=== PATIENT | female | born 1995 | race Caucasian/White ===

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

== ENCOUNTER 2017-08-24 23:23 | Emergency (ER) | payer OTHER ==
[2017-08-24 23:23] VITALS: BP 133/84
[~2017-08-24 23:23] MED LIST changes: +METO10TA81 PO
--- NOTE | 2017-08-24 23:26 | ED.ADGEN ---
Past History Past Medical History: Anxiety, Asthma Past Surgical History: No Surgical History Smoking: Cigarettes Alcohol Use: Occasionally Drug Use: None Adult General Chief Complaint Chief Complaint ".. I was cutting chicken... and got my Lt hand in the way..." HPI HPI Patient is a 21 year old female who presents with above hx and complaints lacerations to 3rd, 4th, 5th. Small less 0.5 cm laceraton of 3rd and 5 th fingers Lt. Has 2 Cm laceration to 4 th finger flexor surface. Dist capillary refill less than 2 seconds. Can flex and extend. Does complaints of some numbness at laceration site. Pt. is Rt. hand dominate. No hx of immunosuppression. No travel or specific ill contacts. Pt tetanus up dated less 1 yr. Review of Systems Review of Systems Constitutional: Denies fever or chills [] Eyes: Denies change in visual acuity, redness, or eye pain [] HENT: Denies nasal congestion or sore throat [] Respiratory: Denies cough or shortness of breath [] Cardiovascular: No additional information not addressed in HPI [] GI: Denies abdominal pain, nausea, vomiting, bloody stools or diarrhea [] : Denies dysuria or hematuria [] Musculoskeletal: Denies back pain or joint pain [] Integument: Denies rash or skin lesions []Laceration as per HPI Neurologic: Denies headache, focal weakness or sensory changes [] Endocrine: Denies polyuria or polydipsia [] All other systems were reviewed and found to be within normal limits, except as documented in this note. Family History Family History Non-contributory Current Medications Current Medications Current Medications Medications (Trade) Dose Ordered Sig/Bert Start Time Stop Time Status Last Admin Dose Admin Bupivacaine HCl (Sensorcaine Mpf 0.5%) 30 ml STK-MED ONCE 08/25/17 00:03 08/25/17 00:06 DC Cephalexin HCl (Keflex) 500 mg 1X ONCE 08/25/17 02:00 08/25/17 02:02 DC 08/25/17 02:00 500 MG Lidocaine HCl 20 ml STK-MED ONCE 08/25/17 00:03 08/25/17 00:06 DC See Nursing for home meds. Allergies Allergies Allergies Coded Allergies Type Severity Reaction Last Updated Verified No Known Drug Allergies 09/09/16 No Physical Exam Physical Exam Constitutional: Well developed, well nourished, moderately acute distress, non- toxic appearance. [] HENT: Normocephalic, atraumatic, bilateral external ears normal, oropharynx moist, no oral exudates, nose normal. [] Eyes: PERRLA, EOMI, conjunctiva pale no discharge. [] Neck: Normal range of motion, no tenderness, supple, no stridor. [] Cardiovascular:Heart rate regular rhythm, no murmur [] Lungs & Thorax: Bilateral breath sounds equal with a few scattered wheezes on auscultation [] Abdomen: Bowel sounds normal, soft, no tenderness, no masses, no pulsatile masses. [] Skin: Warm, dry, no erythema, no rash. [] Laceration s as per HPI Lt hand Back: No tenderness, no CVA tenderness. [] Extremities: No tenderness, no cyanosis, no clubbing, ROM intact, no edema. [] Neurologic: Alert and oriented X 3, normal motor function, normal sensory function, no focal deficits noted. [] Psychologic: Affect Anxious, judgement normal, mood normal. [] EKG EKG [] Radiology/Procedures Radiology/Procedures [] Course & Med Decision Making Course & Med Decision Making Pertinent Labs and Imaging studies reviewed. (See chart for details). Procedure Note: Laceration Repair- Lt. Hand washed with surgical soap. Injected edge of lacerations and digital block on 4th finger. . Irrigated laceration with NS in Range of motion- l liter. Close laceration on 4th finger with 4 suture- Prolene 4-0. Close tip of 3rd finger with 2 sutures. Skin flap on 3rd finger appear avascular. Dressing applied and yrn splint. Pt. keep laceration clean and dry. Sutures out 10 days. Recommend pt. follow up with hand or plastic. Take Keflex 500 three times day x 7 days. Polysporin 4 x day after dressing removed in 3 days. If dressing becomes soiled or wet must replace immediately. [] Final Impression Final Impression 1. Lacerations 3, 4 5 fingers. Lt. [] Dragon Disclaimer Dragon Disclaimer This electronic medical record was generated, in whole or in part, using a voice recognition dictation system. LISA CHOUDHURY MD Aug 24, 2017 23:26
[2017-08-25] MEDS ORDERED: BUPIVACAINE MPF 0.5% 30 ML VIAL. ONE (00:03)
[2017-08-25] MEDS ORDERED: LIDOCAINE 2% 20 ML VIAL. ONE (00:03)
[2017-08-25] MEDS ORDERED: CEPH-264 PO (01:52)
[2017-08-25] MEDS ORDERED: CEPHALEXIN 250 MG CAPSULE PO ONE (02:00)
== END 2017-08-25 02:00 | disposition home or self-care (01) ==
LOC: ER 23:23
DX: S61.213A Laceration without foreign body of left middle finger without damage to nail, initial encounter (principal); S61.215A Laceration without foreign body of left ring finger without damage to nail, initial encounter; S61.217A Laceration without foreign body of left little finger without damage to nail, initial encounter; J45.909 Unspecified asthma, uncomplicated; F41.9 Anxiety disorder, unspecified; F17.210 Nicotine dependence, cigarettes, uncomplicated; W26.0XXA Contact with knife, initial encounter; Y93.89 Activity, other specified; Y99.8 Other external cause status; Y92.89 Other specified places as the place of occurrence of the external cause
CPT/HCPCS: 12001; 99283

== ENCOUNTER 2017-09-23 08:55 | Emergency (ER) | payer OTHER ==
[~2017-09-23] VITALS: Ht 160 cm; Wt 45.4 kg
[~2017-09-23 08:55] MED LIST changes: +CEPH-264 PO
[2017-09-23 09:18] VITALS: BP 124/76
[2017-09-23 09:37] LABS: BACTERIA,URINE FEW /HPF (0-FEW); BILIRUBIN,URINE NEG (NEG); CLARITY,URINE CLOUDY; COLOR,URINE YELLOW; GLUCOSE,URINE NEG (NEG); NITRITE,URINE NEG (NEG); SQUAMOUS EPITHELIAL CELL,UR OCC /LPF; UROBILINOGEN,URINE 0.2 mg/dL (0.2 mg/dL); WBC,URINE >40 /HPF (0-4)
[2017-09-23 09:38] LABS: U PREG PATIENT NEGATIVE (NEG)
[2017-09-23] MEDS ORDERED: cefTRIAXone IM 1 GM VIAL IM ONE (10:15)
[2017-09-23] MEDS ORDERED: SULF1TAB24 PO (10:42)
[2017-09-23] MEDS ORDERED: PHEN100T82 PO (10:42)
--- NOTE | 2017-09-23 10:43 | PHYS DOC ---
Past History Past Medical History: No Pertinent History Past Surgical History: No Surgical History Smoking: Cigarettes Alcohol Use: None Drug Use: None Adult General Chief Complaint Chief Complaint: PAIN ON URINATION HPI HPI 21-year-old male patient complaining of painful urination for the last 2 days without abdominal pain, nausea and vomiting, fever and chills, vaginal bleeding or discharge, . Patient also states she had left hand suture placement in this hospital couple weeks ago and asking for suture removal. Patient denies drainage of pus or pain in area of suture placement. She complaining of numbness of left middle fingertip after her laceration. Review of Systems Review of Systems Constitutional: Denies fever or chills [] Eyes: Denies change in visual acuity, redness, or eye pain [] HENT: Denies nasal congestion or sore throat [] Respiratory: Denies cough or shortness of breath [] Cardiovascular: No additional information not addressed in HPI [] GI: Denies abdominal pain, nausea, vomiting, bloody stools or diarrhea [] : Reports dysuria and urinary frequency Musculoskeletal: Denies back pain or joint pain [] Integument: Denies rash or skin lesions [] Neurologic: Denies headache, focal weakness or sensory changes [] Endocrine: Denies polyuria or polydipsia [] All other systems were reviewed and found to be within normal limits, except as documented in this note. Current Medications Current Medications Current Medications Medications (Trade) Dose Ordered Sig/Bert Start Time Stop Time Status Last Admin Dose Admin Ceftriaxone Sodium (Rocephin Im) 1 gm 1X ONCE 09/23/17 10:15 09/23/17 10:16 DC 09/23/17 10:27 1 GM Allergies Allergies Allergies Coded Allergies Type Severity Reaction Last Updated Verified No Known Drug Allergies 09/09/16 No Physical Exam Physical Exam Constitutional: Well developed, well nourished, mild distress, non-toxic appearance. [] HENT: Normocephalic, atraumatic Eyes: PERRLA, EOMI, conjunctiva normal, no discharge. [] Neck: Normal range of motion, no tenderness, supple, no stridor. [] Cardiovascular:Heart rate regular rhythm, no murmur [] Lungs & Thorax: Bilateral breath sounds clear to auscultation [] Abdomen: Bowel sounds normal, soft, no tenderness, no masses, no pulsatile masses. [] Skin: Warm, dry, no erythema, no rash. [] Back: No tenderness, no CVA tenderness. [] Extremities: No tenderness, no cyanosis, no clubbing, ROM intact, no edema. Left second finger with 1 healed suture, left middle finger with 4 suture with lots of crust Neurologic: Alert and oriented X 3, normal motor function, normal sensory function, no focal deficits noted. [] Psychologic: Affect normal, judgement normal, mood normal. [] Current Patient Data Vital Signs Vital Signs Date Time Temp Pulse Resp B/P (MAP) Pulse Ox O2 Delivery O2 Flow Rate FiO2 09/23/17 09:18 98.1 66 18 99 Room Air Lab Results Laboratory Tests Test 09/23/17 09:03 Urine Collection Type Unknown Urine Color Yellow Urine Clarity Cloudy Urine pH 6.5 Urine Specific [place] 1.020 Urine Protein 100 mg/dl (NEG-TRACE) Urine Glucose (UA) Neg mg/dL (NEG) Urine Ketones (Stick) Neg mg/dL (NEG) Urine Blood Large (NEG) Urine Nitrite Neg (NEG) Urine Bilirubin Neg (NEG) Urine Urobilinogen Dipstick 0.2 mg/dL (0.2 mg/dL) Urine Leukocyte Esterase Large (NEG) Urine RBC 11-20 /HPF (0-2) Urine WBC >40 /HPF (0-4) Urine Squamous Epithelial Cells Occ /LPF Urine Bacteria Few /HPF (0-FEW) Urine Mucus Slight /LPF Urine Test Negative (NEG) EKG EKG [] Radiology/Procedures Radiology/Procedures [] Course & Med Decision Making Course & Med Decision Making Pertinent Labs reviewed. (See chart for details) Left hand suture was removed by me without problem. discharge: I've spoken with the patient and/or caregivers. I've explained the patient's condition, diagnosis and treatment plan based on information available to me at this time. I've answered the patient's and/or caregivers questions and addressed any concerns. The patient and/or caregivers have a good understanding the patient's diagnosis, condition and treatment plan as can be expected at this point. Vital signs have been stabilized. The patient's condition is stable for discharge from the emergency department. The patient will pursue further outpatient evaluation with her primary care provider or other designated consulting physician as outlined in the discharge instructions. Patient and/or caregivers are agreeable to this plan of care and follow-up instructions have been explained in detail. The patient and/or caregivers have received these instructions in written format and expressed understanding of these discharge instructions. The patient and her caregivers are aware that if any significant change in condition or worsening of symptoms should prompt him to immediately return to this of the closest emergency department. If an emergent department is not readily available I would encourage him to call 911. Dragon Disclaimer Dragon Disclaimer This electronic medical record was generated, in whole or in part, using a voice recognition dictation system. Departure Departure: Impression: Primary Impression: Urinary tract infection Additional Impressions: Visit for suture removal Tobacco abuse Tobacco abuse counseling Disposition: HOME, SELF-CARE (At 1041) Condition: IMPROVED Referrals: SKYE NI DO (PCP) Patient Instructions: Smoking Cessation, Suture Removal, Urinary Tract Infection Additional Instructions: Drink plenty of liquids Follow-up with your primary care physician in 3-5 days Return to ER if not getting better Scripts Phenazopyridine Hcl (PYRIDIUM) 100 Mg Tablet 100 MG PO BID, #10 TAB Prov: CRIS HUTTON MD 09/23/17 Sulfamethoxazole/Trimethoprim (BACTRIM DS TABLET) 1 Each Tablet 1 TAB PO BID, #14 TAB Prov: CRIS HUTTON MD 09/23/17 Problem Qualifiers CRIS HUTTON MD Sep 23, 2017 10:43
== END 2017-09-23 10:48 | disposition home or self-care (01) ==
LOC: ER 08:55
DX: N39.0 Urinary tract infection, site not specified (principal); S61.211D Laceration without foreign body of left index finger without damage to nail, subsequent encounter; F17.210 Nicotine dependence, cigarettes, uncomplicated; X58.XXXD Exposure to other specified factors, subsequent encounter
CPT/HCPCS: 81001; 81025; 87086; 96372; 99284; J0696

== ENCOUNTER 2020-03-10 03:35 | Emergency (ER) | payer SELFPAY ==
[~2020-03-10] VITALS: Ht 160 cm; Wt 52.0 kg
[~2020-03-10 03:35] MED LIST changes: +HYDR-2155 PO; -HYDR-2758 PO; +PHEN100T82 PO; +SULF1TAB24 PO
[2020-03-10] MEDS ORDERED: ONDANSETRON PF 4 MG/2 ML VIAL. ONE (03:42)
--- NOTE | 2020-03-10 03:47 | PHYS DOC ---
Past History Past Medical History: No Pertinent History Past Surgical History: No Surgical History Smoking: Cigarettes Alcohol Use: None Drug Use: None Adult General HPI HPI Patient is a 24-year-old female who presents via POV for nausea and vomiting. She reports she "thinks "she is . She is currently on Depo Provera shots but states symptoms that " I had last time I was " such as lower back cramping and persistent nausea and vomiting prompted her to take x2 tests which were both positive most recent being yesterday evening. Today, patient woke up and reports ongoing nausea with subsequent nonbloody nonbilious emesis. Patient reports having greater than 5 episodes of emesis today stating " I have throwing up so much I have lost count". No fever, no recent travel, no URI-like symptoms, no COVID-19 contact, no abdominal pain, no prior abdominal surgeries. Only symptoms include persistent nausea, emesis that is exacerbated with p.o. intake, and increased urinary frequency. Patient reports x1 prior spontaneous vaginal delivery that was uncomplicated in nature but states she suffered from nausea throughout entirety of , states she was prescribed Diclegis for nausea Review of Systems Review of Systems Fourteen body systems of review of systems have been reviewed. See HPI for per tinent positives and negative responses, other meza all other systems are negative, non-pertinent or non-contributory Current Medications Current Medications Current Medications Medications (Trade) Dose Ordered Sig/Bert Start Time Stop Time Status Last Admin Dose Admin Ondansetron HCl (Zofran) 4 mg STK-MED ONCE 03/10/20 03:42 03/10/20 03:42 DC Allergies Allergies Allergies Coded Allergies Type Severity Reaction Last Updated Verified No Known Drug Allergies 09/09/16 No Physical Exam Physical Exam Constitutional: Well developed, well nourished, no acute distress, non-toxic appearance. HENT: Normocephalic, atraumatic, bilateral external ears normal, oropharynx dry, no oral exudates, nose normal. Eyes: PERRLA, EOMI, conjunctiva normal, no discharge. Neck: Normal range of motion, no tenderness, supple, no stridor. Cardiovascular: Heart rate regular, sinus rhythm, no murmurs rubs or gallops Lungs & Thorax: Bilateral breath sounds clear to auscultation Abdomen: Bowel sounds normal, soft, no tenderness, no masses, no pulsatile masses. Nonsurgical abdomen, no peritoneal signs Skin: Warm, dry, no erythema, no rash. Back: No tenderness, no CVA tenderness. Extremities: No tenderness, no cyanosis, no clubbing, ROM intact, no edema. Neurologic: Alert and oriented X 3, grossly normal motor & sensory function, no focal deficits noted. Psychologic: Affect normal, judgement normal, mood normal. Current Patient Data Vital Signs Vital Signs Date Time Temp Pulse Resp B/P (MAP) Pulse Ox O2 Delivery O2 Flow Rate FiO2 03/10/20 04:56 62 18 128/63 (84) 100 Room Air 03/10/20 03:35 97.5 Lab Results Laboratory Tests Test 03/10/20 03:45 03/10/20 04:50 03/10/20 04:56 White Blood Count 24.5 x10^3/uL (4.0-11.0) Red Blood Count 4.71 x10^6/uL (3.50-5.40) Hemoglobin 13.3 g/dL (12.0-15.5) Hematocrit 40.5 % (36.0-47.0) Mean Corpuscular Volume 86 fL (79-100) Mean Corpuscular Hemoglobin 28 pg (25-35) Mean Corpuscular Hemoglobin Concent 33 g/dL (31-37) Red Cell Distribution Width 14.9 % (11.5-14.5) Platelet Count 323 x10^3/uL (140-400) Neutrophils (%) (Auto) 66 % (31-73) Lymphocytes (%) (Auto) 26 % (24-48) Monocytes (%) (Auto) 6 % (0-9) Eosinophils (%) (Auto) 1 % (0-3) Basophils (%) (Auto) 0 % (0-3) Neutrophils # (Auto) 16.2 x10^3uL (1.8-7.7) Lymphocytes # (Auto) 6.3 x10^3/uL (1.0-4.8) Monocytes # (Auto) 1.5 x10^3/uL (0.0-1.1) Eosinophils # (Auto) 0.3 x10^3/uL (0.0-0.7) Basophils # (Auto) 0.1 x10^3/uL (0.0-0.2) Segmented Neutrophils % 56 % (35-66) Band Neutrophils % 3 % (0-9) Lymphocytes % 35 % (24-48) Monocytes % 6 % (0-10) Platelet Estimate Adequate (ADEQUATE) Sodium Level 137 mmol/L (136-145) Potassium Level 3.3 mmol/L (3.5-5.1) Chloride Level 103 mmol/L (98-107) Carbon Dioxide Level 20 mmol/L (21-32) Anion Gap 14 (6-14) Blood Urea Nitrogen 10 mg/dL (7-20) Creatinine 0.7 mg/dL (0.6-1.0) Estimated GFR (Cockcroft-Gault) 104.6 BUN/Creatinine Ratio 14 (6-20) Glucose Level 123 mg/dL (70-99) Calcium Level 8.5 mg/dL (8.5-10.1) Total Bilirubin 0.3 mg/dL (0.2-1.0) Aspartate Amino Transf (AST/SGOT) 12 U/L (15-37) Alanine Aminotransferase (ALT/SGPT) 17 U/L (14-59) Alkaline Phosphatase 63 U/L (46-116) Total Protein 7.2 g/dL (6.4-8.2) Albumin 3.6 g/dL (3.4-5.0) Albumin/Globulin Ratio 1.0 (1.0-1.7) Lipase 197 U/L (73-393) Urine Collection Type Unknown Urine Color Yellow Urine Clarity Clear Urine pH 6.5 Urine Specific [place] 1.025 Urine Protein Neg (NEG-TRACE) Urine Glucose (UA) 100 mg/dL (NEG) Urine Ketones (Stick) Trace mg/dL (NEG) Urine Blood Small (NEG) Urine Nitrite Neg (NEG) Urine Bilirubin Neg (NEG) Urine Urobilinogen Dipstick 0.2 mg/dL (0.2 mg/dL) Urine Leukocyte Esterase Trace (NEG) Urine RBC 6-10 /HPF (0-2) Urine WBC 1-4 /HPF (0-4) Urine Squamous Epithelial Cells Few /LPF Urine Bacteria 0 /HPF (0-FEW) Bedside Urine HCG, Qualitative hcg positive (Negative) EKG EKG [] Radiology/Procedures Radiology/Procedures [] Heart Score HEART Score for Chest Pain: HEART Score for Chest Pain Response (Comments) Value History Slighlty/Non-Suspicious 0 Age < 45 0 Risk Factors No Risk Factors 0 Total 0 Risk Factors: Risk Factors: DM, Current or recent (<one month) smoker, HTN, HLP, family history of CAD, obesity. Risk Scores: Risk Factors: DM, Current or recent (<one month) smoker, HTN, HLP, family history of CAD, obesity. Course & Med Decision Making Course & Med Decision Making Pertinent Labs and Imaging studies reviewed. (See chart for details) Patient in first trimester per clinical appearance and per FDLMP Nauseas and vomiting on arrival, significantly improved after ER intervention Has history of excessive nausea and vomiting in , was on Diclegis throughout entirety of last , RX for this given prior to departure Patient has follow-up with PCP and will be establishing care with prior [facility]. Patient discharged with continued supportive care with RX Diclegis and encouraged to take daily multivitamin Hemodynamically stable, ambuklatory, tolerating PO intake without an acute abdomen on ER departure Dragon Disclaimer Dragon Disclaimer This electronic medical record was generated, in whole or in part, using a voice recognition dictation system. Departure Departure: Impression: Primary Impression: Nausea & vomiting Additional Impression: and not yet delivered in first trimester Disposition: 01 DC HOME SELF CARE/HOMELESS Condition: IMPROVED Referrals: SKYE NI DO (PCP) Patient Instructions: ABCs of , Medicines During , Nausea and Vomiting Additional Instructions: You were seen for nausea and vomiting. You most likely have a viral illness which should resolve in the next few days to a week. This also could be related to your new diagnosis of being . I would advise you to contact your primary care physician previously utilized to [facility] in outpatient setting for ongoing care for this. You should return to the ED if you develop abdominal pain, fever > 100.3, black/bloody stools, black/bloody vomiting, cannot keep water down, or any other new or concerning symptoms. Scripts Doxylamine/Pyridoxine Hcl (ALVERTOLEGIS DR 10-10 MG TABLET) 1 Each Tablet. 2 TAB PO QHS for nausea for 24 Days, #48 TAB 0 Refills Prov: JORY EDUARDO DO 03/10/20 Problem Qualifiers JORY EDUARDO DO Mar 10, 2020 03:47
[2020-03-10 04:02] LABS: BASO # 0.1 x10^3/uL (0.0-0.2); BASO % 0 % (0-3); EOS # 0.3 x10^3/uL (0.0-0.7); EOS % 1 % (0-3); HEMATOCRIT 40.5 % (36.0-47.0); HEMOGLOBIN 13.3 g/dL (12.0-15.5); LYMPH # 6.3 x10^3/uL (1.0-4.8); LYMPH % 26 % (24-48); MEAN CORPUSCULAR HEMOGLOBIN 28 pg (25-35); MEAN CORPUSCULAR HGB CONC 33 g/dL (31-37); MEAN CORPUSCULAR VOLUME 86 fL (79-100); MONO # 1.5 x10^3/uL (0.0-1.1); MONO % 6 % (0-9); NEUT # 16.2 x10^3uL (1.8-7.7); NEUT % 66 % (31-73); PLATELET COUNT 323 x10^3/uL (140-400); RED BLOOD COUNT 4.71 x10^6/uL (3.50-5.40); RED CELL DISTRIBUTION WIDTH 14.9 % (11.5-14.5); WHITE BLOOD COUNT 24.5 x10^3/uL (4.0-11.0)
[2020-03-10 04:14] LABS: CALCIUM 8.5 mg/dL (8.5-10.1); CREATININE 0.7 mg/dL (0.6-1.0); GFR 104.6; POTASSIUM 3.3 mmol/L (3.5-5.1)
[2020-03-10 04:18] LABS: % BANDS 3 % (0-9); % LYMPHS 35 % (24-48); % MONOS 6 % (0-10); % SEGS 56 % (35-66); ALBUMIN 3.6 g/dL (3.4-5.0); TOTAL BILIRUBIN 0.3 mg/dL (0.2-1.0); TOTAL PROTEIN 7.2 g/dL (6.4-8.2)
[2020-03-10 04:19] LABS: PLT ESTIMATE ADEQUATE (ADEQUATE)
[2020-03-10] MEDS ORDERED: ONDANSETRON PF 4 MG/2 ML VIAL. IVP ONE ×2 (04:30→05:45)
[2020-03-10] MEDS ORDERED: IV NORMAL SALINE 1,000ML 1,000 ML IV SCH (04:30)
[2020-03-10] MEDS ORDERED: IV NORMAL SALINE 1,000ML 1,000 ML IV ONE (04:45)
[2020-03-10 04:56] VITALS: BP 128/63
[2020-03-10 05:13] LABS: BILIRUBIN,URINE NEG (NEG); CLARITY,URINE CLEAR; COLOR,URINE YELLOW; GLUCOSE,URINE 100 mg/dL (NEG); NITRITE,URINE NEG (NEG); UROBILINOGEN,URINE 0.2 mg/dL (0.2 mg/dL)
[2020-03-10 05:14] LABS: BACTERIA,URINE 0 /HPF (0-FEW); SQUAMOUS EPITHELIAL CELL,UR FEW /LPF
[2020-03-10] MEDS ORDERED: diphenhydrAMINE 50 MG/ML VIAL ONE (05:44)
[2020-03-10] MEDS ORDERED: diphenhydrAMINE 50 MG/ML VIAL IVP ONE (05:45)
[2020-03-10] MEDS ORDERED: DOXY1TAB3 PO (05:45)
[2020-03-10] MEDS ORDERED: POTASSIUM CHLORIDE 20 MEQ TABLET.ER. PO ONE (06:00)
== END 2020-03-10 05:52 | disposition home or self-care (01) ==
LOC: ER 03:35
DX: O21.9 Vomiting of pregnancy, unspecified (principal); F17.210 Nicotine dependence, cigarettes, uncomplicated; Z3A.00 Weeks of gestation of pregnancy not specified
CPT/HCPCS: 36415; 80053; 81001; 81025; 83690; 85007; 85025; 87086; 96361; 96374; 96375; 96376; 99284; J1200; J2405; J7030; 87147

== ENCOUNTER 2020-03-18 10:54 | Emergency (ER) | payer MEDICAID ==
[~2020-03-18] VITALS: Ht 160 cm; Wt 49.7 kg
[~2020-03-18 10:54] MED LIST changes: +DOXY1TAB3 PO
[2020-03-18] MEDS ORDERED: IV NORMAL SALINE 1,000ML 1,000 ML IV ONE (11:30)
--- NOTE | 2020-03-18 11:30 | PHYS DOC ---
Past History Past Medical History: No Pertinent History Past Surgical History: No Surgical History Smoking: Cigarettes Alcohol Use: None Drug Use: None General Adult EDM: Chief Complaint: PELVIC PAIN HPI: HPI: Patient is a 24 year old female who presents with b/l lower abdominal pain. Pt believes she is 4-5 months but is not sure of exact timeline. Pt believes she is A negative and may have received RHOgam on her first . Pt followed with Dr. Garcia at [facility] for her first but has not had a regular OBGYN this one. Pain is constant/throbbing and started at 7:00 am this morning. Pain associated with N/V but no vomiting in ED. Pain located at the b/l ASIS and radiates inferiorly. Pt denies any change in urination, bowel habits, or any abnormal discharge/bleeding. Review of Systems: Review of Systems: Constitutional: Denies fever or chills Eyes: Denies redness or eye pain HENT: Denies nasal congestion or sore throat Respiratory: Denies cough or shortness of breath Cardiovascular: Denies chest pain or palpitations GI: Reports abdominal pain, admits to nausea and vomiting : Denies dysuria or hematuria. Denies bloody discharge Musculoskeletal: Denies back pain or joint pain Integument: Denies rash or skin lesions Neurologic: Denies headache, focal weakness or sensory changes Complete systems were reviewed and found to be within normal limits, except as documented in this note. Allergies: Allergies: Allergies Coded Allergies Type Severity Reaction Last Updated Verified No Known Drug Allergies 09/09/16 No Physical Exam: PE: Constitutional: Well developed, well nourished, no acute distress, non-toxic appearance HENT: Normocephalic, atraumatic Eyes: Conjunctiva normal, no discharge Neck: Normal range of motion, no tenderness, supple Lungs & Thorax: No respiratory distress, equal chest rise and fall Abdomen: Tenderness to palpation in LLQ, mildly distended Pelvic exam: Misty YIN as director banking. External genitalia normal with no obvious abnormalities. Chlamydia and Wet prep taken. A small amount of thin white discharge noted on examination. No cervical motion tenderness. Unable to feel b/l ovaries due to Skin: Warm, dry, no erythema, no rash Back: No tenderness, no CVA tenderness Extremities: No tenderness, ROM intact, no edema Neurologic: Alert and oriented X 3, normal motor function, normal sensory function, no focal deficits noted Psychologic: Affect normal, judgment normal EKG: EKG: [] Radiology/Procedures: Radiology/Procedures: PROCEDURE: OB LIMITED EXAM: Ultrasound OB Greater than 14 weeks INDICATION: Reason: abdominal pain in / Spl. Instructions: / History: TECHNIQUE: Real-time obstetrical ultrasound was performed with permanent freeze- frame documentation. COMPARISON: None. FINDINGS: POSITION: Variable HEART RATE: 152 bpm TOBY: Subjectively normal PLACENTA: Complete previa, with a retroplacental hematoma. CERVICAL LENGTH: 4 cm MATERNAL UTERUS: Unremarkable. MATERNAL ADNEXA: Unremarkable. AGE/DATES: Gestational Age by LMP: Unknown Gestation Age by US: 14 weeks 3 days EDC by LMP: Unknown EDC by US: September 13, 2020 WEIGHT: Not estimated PERCENTILE WEIGHT: Not estimated BIOMETRIC PARAMETERS: BPD: 2.5 cm corresponding with 14 weeks 2 days HC: 9.3 cm corresponding with 14 weeks 2 days AC: 8.5 cm corresponding with 14 weeks 6 days FL: 1.4 cm corresponding with 14 weeks 0 days IMPRESSION: Single live intrauterine gestation with estimated gestational age of 14 weeks 3 days and EDC of September 13, 2020. There is complete placenta previa with a 3 x 1 cm retroplacental fluid collection over the internal os. Correlate clinically for any signs and symptoms of abruption Results telephoned to the emergency room where Denita charge nurse took the telephone report on behalf of Dr. Cottrell at 12:38 PM on 03/18/2020. Electronically signed by: Isaiah Cortés MD (03/18/2020 12:43 PM) [id number] Course & Med Decision Making: Course & Med Decision Making Pt presented to ED with b/l pelvic pain. US showing FHR at 150-155. Fluid resuscitation with IV NS. Chlamydia and Wet prep. Will follow CBC/UA/Blood type. Pelvic U/S showing complete placenta previa with a 3 x 1 cm retroplacental fluid collection over the internal os. Patient is A+. Wet prep showing bacterial vaginosis, flagyl prescription given. No clinical signs of abruption or bleeding. Discharged with vitamins and strong recommendation to follow with OBGYN as pt currently does not have one. Patient stable for discharge home with outpatient follow-up with PCP/OB. Discussed findings and plan with patient, who acknowledges understanding and agreement. Gayle Disclaimer: Gayle Disclaimer: This electronic medical record was generated, in whole or in part, using a voice recognition dictation system. Departure Departure: Impression: Primary Impression: Abdominal pain during in second trimester Additional Impressions: Bacterial vaginosis in Placenta previa in second trimester Disposition: 01 DC HOME SELF CARE/HOMELESS Condition: STABLE Referrals: PCP,NO (PCP) Patient Instructions: ABCs of , Abdominal Pain During , [id number], Bacterial Vaginosis, [id number], - Placenta Previa Additional Instructions: Please follow closely with [facility]. Dr. Samuel Reyes Address: [address] [place] [address] [id number], [place] [address] Scripts Metronidazole (FLAGYL) 500 Mg Tablet 1 TAB PO BID for Bacterial Vaginosis, #14 TAB Prov: TROY COTTRELL DO 03/18/20 Vits W-Ca,Fe,Fa(<1MG) ( VITAMINS) 1 Each Tablet 1 TAB PO DAILY for for 30 Days, #30 TAB 0 Refills Prov: TROY COTTRELL DO 03/18/20 TROY COTTRELL DO Mar 18, 2020 11:30
[2020-03-18 11:44] LABS: BASO # 0.1 x10^3/uL (0.0-0.2); BASO % 0 % (0-3); EOS # 0.2 x10^3/uL (0.0-0.7); EOS % 1 % (0-3); HEMATOCRIT 37.6 % (36.0-47.0); HEMOGLOBIN 12.2 g/dL (12.0-15.5); LYMPH # 2.4 x10^3/uL (1.0-4.8); LYMPH % 17 % (24-48); MEAN CORPUSCULAR HEMOGLOBIN 28 pg (25-35); MEAN CORPUSCULAR HGB CONC 32 g/dL (31-37); MEAN CORPUSCULAR VOLUME 86 fL (79-100); MONO # 0.8 x10^3/uL (0.0-1.1); MONO % 6 % (0-9); NEUT # 10.3 x10^3uL (1.8-7.7); NEUT % 75 % (31-73); PLATELET COUNT 246 x10^3/uL (140-400); RED BLOOD COUNT 4.36 x10^6/uL (3.50-5.40); WHITE BLOOD COUNT 13.8 x10^3/uL (4.0-11.0)
[2020-03-18 11:53] LABS: CALCIUM 7.9 mg/dL (8.5-10.1); CREATININE 0.5 mg/dL (0.6-1.0); GFR 154.3; POTASSIUM 3.4 mmol/L (3.5-5.1)
[2020-03-18 11:59] LABS: ALBUMIN/GLOBULIN RATIO 0.9 (1.0-1.7); MAGNESIUM 2.1 mg/dL (1.8-2.4); TOTAL BILIRUBIN 0.2 mg/dL (0.2-1.0); TOTAL PROTEIN 6.2 g/dL (6.4-8.2)
[2020-03-18 12:06] LABS: BILIRUBIN,URINE NEG (NEG); CLARITY,URINE CLOUDY; COLOR,URINE YELLOW; GLUCOSE,URINE NEG (NEG)
[2020-03-18 12:07] LABS: AMORPHOUS SEDIMENT,UR PRESENT /HPF; BACTERIA,URINE FEW /HPF (0-FEW); NITRITE,URINE NEG (NEG); SQUAMOUS EPITHELIAL CELL,UR FEW /LPF; UROBILINOGEN,URINE 0.2 mg/dL (0.2 mg/dL); WBC,URINE OCC /HPF (0-4)
--- NOTE | 2020-03-18 12:45 | RAD ---
EXAM: Ultrasound OB Greater than 14 weeks INDICATION: Reason: abdominal pain in / Spl. Instructions: / History: TECHNIQUE: Real-time obstetrical ultrasound was performed with permanent freeze-frame documentation. COMPARISON: None. FINDINGS: POSITION: Variable HEART RATE: 152 bpm TOBY: Subjectively normal PLACENTA: Complete previa, with a retroplacental hematoma. CERVICAL LENGTH: 4 cm MATERNAL UTERUS: Unremarkable. MATERNAL ADNEXA: Unremarkable. AGE/DATES: Gestational Age by LMP: Unknown Gestation Age by US: 14 weeks 3 days EDC by LMP: Unknown EDC by US: September 13, 2020 WEIGHT: Not estimated PERCENTILE WEIGHT: Not estimated BIOMETRIC PARAMETERS: BPD: 2.5 cm corresponding with 14 weeks 2 days HC: 9.3 cm corresponding with 14 weeks 2 days AC: 8.5 cm corresponding with 14 weeks 6 days FL: 1.4 cm corresponding with 14 weeks 0 days IMPRESSION: Single live intrauterine gestation with estimated gestational age of 14 weeks 3 days and EDC of September 13, 2020. There is complete placenta previa with a 3 x 1 cm retroplacental fluid collection over the internal os. Correlate clinically for any signs and symptoms of abruption Results telephoned to the emergency room where Denita charge nurse took the telephone report on beha lf of Dr. Vázquez at 12:38 PM on 03/18/2020. Electronically signed by: Isaiah Cortés MD (03/18/2020 12:43 PM) [id number]
[2020-03-18] MEDS ORDERED: METR500T PO (13:09)
[2020-03-18] MEDS ORDERED: PREN1TAB58 PO (13:09)
[2020-03-18 13:15] VITALS: BP 128/80
[2020-03-19 19:07] LABS: CHLAMYDIA PROBE Negative (Negative)
== END 2020-03-18 13:20 | disposition home or self-care (01) ==
LOC: ER 10:54
DX: O23.592 Infection of other part of genital tract in pregnancy, second trimester (principal); O44.02 Complete placenta previa NOS or without hemorrhage, second trimester; B96.89 Other specified bacterial agents as the cause of diseases classified elsewhere; O99.332 Smoking (tobacco) complicating pregnancy, second trimester; Z3A.14 14 weeks gestation of pregnancy
CPT/HCPCS: 36415; 76815; 80053; 81001; 83735; 84702; 85025; 86900; 86901; 87491; 87591; 99284; Q0111